=== PATIENT | male | born 1970 | race Caucasian/White ===

== ENCOUNTER 2018-07-13 15:03 | Outpatient (CLI) | payer OTHER ==
[2018-07-13] MEDS ORDERED: GLIM4TAB79 PO (16:10)
[2018-07-13] MEDS ORDERED: METF-438 PO (16:10)
[2018-07-13 17:00] LABS: BASOPHILS % (AUTO) 0.3 % (0-1); EOSINOPHILS # (AUTO) 0.1 X10'3 (0-0.9); LYMPHOCYTES % (AUTO) 29.9 % (21-51); MEAN CORPUSCULAR HEMOGLOBIN 30.5 PG (27.0-31.0); MEAN CORPUSCULAR VOLUME 89.6 FL (78-98); MEAN PLATELET VOLUME 8.1 FL (7.4-10.4); MONOCYTES # (AUTO) 0.6 X10'3 (0-0.9); MONOCYTES % (AUTO) 8.5 % (2-12); NEUTROPHILS # (AUTO) 3.9 X10'3 (1.8-7.7); NEUTROPHILS % (AUTO) 59.3 % (42-75); PRE OP HEMATOCRIT 46.4 % (42.0-52.0); PRE OP HEMOGLOBIN 15.8 g/dL (14.0-17.9); PRE OP PLATELET COUNT 307 X10'3 (140-440); RED BLOOD COUNT 5.18 X10'6 (4.70-6.10)
[2018-07-13 17:05] LABS: HEMOGLOBIN A1C 7.2 % (4.5-6.2)
[2018-07-13 17:46] LABS: ALBUMIN 4.1 G/DL (3.4-5.0); BLOOD UREA NITROGEN 15 MG/DL (7-18); CHLORIDE 103 MMOL/L (99-107); PRE OP POTASSIUM 3.8 MMOL/L (3.4-5.1); PRE OP SODIUM 139 MMOL/L (135-145)
[2018-07-13 18:03] LABS: ALBUMIN/GLOBULIN RATIO 1.1 (1.1-1.5); BUN/CREATININE RATIO 14.3 (5.4-32.0); CALCIUM 9.6 MG/DL (8.5-10.1); CREATININE 1.05 MG/DL (0.60-1.10); PRE OP ALT 56 U/L (30-65); PRE OP ANION GAP 11 (8-16); PRE OP AST 23 U/L (10-37); PRE OP BILIRUB, TOTAL 0.5 MG/DL (0.0-1.0); PRE OP GLUCOSE 131 MG/DL (70-104); TOTAL CARBON DIOXIDE 24.6 MMOL/L (24-32); TOTAL PROTEIN 7.7 G/DL (6.4-8.2); eGFR 76 ML/MIN
[2018-07-13 18:22] LABS: ALKALINE PHOSPHATASE 83 IU/L (46-116)
== END 2018-07-13 23:59 | disposition home or self-care (01) ==
LOC: PRE-OP 15:03 → EDSTATUS 07-21 13:00
PROVIDERS: ATTEND Orthopaedic Surgery
DX: Z01.818 Encounter for other preprocedural examination (principal); M17.12 Unilateral primary osteoarthritis, left knee; Z79.84 Long term (current) use of oral hypoglycemic drugs
CPT/HCPCS: 36415; 80053; 83036; 85025; 87070; 93005

== ENCOUNTER 2018-08-02 06:34 | Inpatient (IN) | payer OTHER ==
[~2018-08-02] VITALS: Ht 182.9 cm; Wt 117.9 kg
[2018-08-02] VITALS (22 sets, daily range): BP systolic 104–151; BP diastolic 66–87
[~2018-08-02 06:34] MED LIST: GLIM4TAB79 PO; METF-438 PO; acetaminophen 325mg tablet PO ONE; cefazolin/dext.iso 2gm/50ml 50 ML IV ONE; famotidine 20mg tablet PO ONE; gabapentin 300mg capsule PO ONE; metoclopramide 5 mg/ml inj IV ONE; oxyCODONE SR 10mg (sust. release) tab -2 tabs (20mg) PO ONE; ringers solution, lacted 1,000 ML IV SCH; tranexamic acid inj. 1,000 MG in normal saline 100ml IV soln 90 ML IV ONE; vancomycin inj 1,500 MG in normal saline 300ml IV soln IV ONE
[2018-08-02 08:57] LABS: BASOPHILS % (AUTO) 0.3 % (0-1); EOSINOPHILS # (AUTO) 0.2 X10'3 (0-0.9); EOSINOPHILS % (AUTO) 2.4 % (0-6); HEMATOCRIT 44.3 % (42.0-52.0); LYMPHOCYTES # (AUTO) 1.5 X10'3 (1.1-4.8); LYMPHOCYTES % (AUTO) 22.8 % (21-51); MEAN CORPUSCULAR HEMOGLOBIN 30.2 PG (27.0-31.0); MEAN CORPUSCULAR HGB CONC 33.8 % (33.0-36.5); MEAN CORPUSCULAR VOLUME 89.5 FL (78-98); MEAN PLATELET VOLUME 7.8 FL (7.4-10.4); MONOCYTES # (AUTO) 0.5 X10'3 (0-0.9); MONOCYTES % (AUTO) 7.1 % (2-12); NEUTROPHILS # (AUTO) 4.3 X10'3 (1.8-7.7); NEUTROPHILS % (AUTO) 67.4 % (42-75); PLATELET COUNT 331 X10'3 (140-440); RED BLOOD COUNT 4.95 X10'6 (4.70-6.10); RED CELL DISTRIBUTION WIDTH 12.6 % (11.5-14.5); WHITE BLOOD COUNT 6.4 X10'3 (4.5-11.0)
[2018-08-02 09:13] LABS: ALANINE AMINOTRANSFERASE 57 U/L (12-78); ALBUMIN 3.9 G/DL (3.4-5.0); ALBUMIN/GLOBULIN RATIO 1.2 (1.1-1.5); ALKALINE PHOSPHATASE 85 IU/L (46-116); ANION GAP 13 (8-16); ASPARTATE AMINO TRANSFERASE 21 U/L (10-37); BILIRUBIN,TOTAL 0.6 MG/DL (0.1-1.0); BLOOD UREA NITROGEN 12 MG/DL (7-18); BUN/CREATININE RATIO 13.5 (5.4-32.0); CALCIUM 8.7 MG/DL (8.5-10.1); CHLORIDE 104 MMOL/L (99-107); CREATININE 0.89 MG/DL (0.60-1.10); GLUCOSE 157 MG/DL (70-104); POTASSIUM 4.1 MMOL/L (3.5-5.1); SODIUM 139 MMOL/L (135-145); TOTAL CARBON DIOXIDE 22.2 MMOL/L (24-32); TOTAL PROTEIN 7.2 G/DL (6.4-8.2); eGFR > 90 ML/MIN
[2018-08-02] MEDS ORDERED: vancomycin 1,000mg inj ONE (09:19)
[2018-08-02] MEDS ORDERED: ROPIVAcaine inj 200 MG, epiNEPHrine inj 0.6 MG, morphine 10mg/ml inj. 5 MG in normal sa... IU ONE (09:45)
[2018-08-02] MEDS ORDERED: sevoflurane 250ml liquid IH ONE (10:00)
[2018-08-02] MEDS ORDERED: fentaNYL /PF 50mcg/ml 5ml ampule ONE (10:05)
[2018-08-02] MEDS ORDERED: midazolam 2 mg/2 ml injection ONE (10:05)
[2018-08-02] MEDS ORDERED: Thrombin (Bovine) 5,000 unit vial TP ONE (10:39)
[2018-08-02] MEDS ORDERED: ketorolac trometh. 30mg/ml inj. ONE (10:39)
[2018-08-02] MEDS ORDERED: calcium chloride 100 MG/1 ML inj IV ONE (10:40)
[2018-08-02] MEDS ORDERED: ringers solution, lacted 1,000 ML IV SCH (11:17)
[2018-08-02] MEDS ORDERED: proCHLORperazine 10 MG/2 ml inj IV PRN (11:20)
[2018-08-02] MEDS ORDERED: meperidine/PF 25mg/ml syringe IV PRN ×3 (11:20)
[2018-08-02] MEDS ORDERED: morphine 4 MG/ML inj SYRINge IV PRN ×2 (11:20)
[2018-08-02] MEDS ORDERED: ondansetron/PF 4mg/2ml inj IV PRN ×2 (11:20→13:45)
[2018-08-02] MEDS ORDERED: cloNIDine hcl/PF 100mcg/ml inj ONE (11:51)
[2018-08-02] MEDS ORDERED: LIDOcaine 2% (20mg/ml) 5ml vial ONE (11:52)
[2018-08-02] MEDS ORDERED: propofol inj 20 ML IV ONE (11:52)
[2018-08-02] MEDS ORDERED: rocuronium 10mg/ml inj IV ONE (11:52)
[2018-08-02] MEDS ORDERED: ROPIVAcaine 0.5% (5mg/ml) 30ml vial ONE (11:55)
[2018-08-02] MEDS ORDERED: dexamethasone sod phosphate 4mg/ml inj. ONE (11:55)
[2018-08-02] MEDS ORDERED: ondansetron/PF 4mg/2ml inj ONE (12:11)
[2018-08-02] MEDS ORDERED: meperidine/PF 50mg/ml syringe ONE (12:35)
[2018-08-02] MEDS ORDERED: insulin regular, human vial - multi-dose ONE (13:01)
[2018-08-02] MEDS ORDERED: fentaNYL/PF 50MCG/1 ML 2ML syringe ONE (13:44)
[2018-08-02] MEDS ORDERED: oxyCODONE IR 5mg (immed. release) tablet PO PRN (13:45)
[2018-08-02] MEDS ORDERED: acetaminophen 325mg tablet PO PRN (13:45)
[2018-08-02] MEDS ORDERED: diphenhydrAMINE 25mg capsule PO PRN ×2 (13:45)
[2018-08-02] MEDS ORDERED: bisacodyl 10mg suppository rectal RC PRN (13:45)
[2018-08-02] MEDS ORDERED: HYDROmorphone 1 mg/ml syringe IV PRN ×2 (13:45)
[2018-08-02] MEDS ORDERED: magnesium hydroxide 30ml (MOM) UD suspension PO PRN (13:45)
[2018-08-02] MEDS: oxyCODONE IR 5mg (immed. release) tablet PO PRN ×2 (16:31→21:05)
[2018-08-02] MEDS: acetaminophen 325mg tablet PO SCH ×2 (16:32→21:03)
[2018-08-02] MEDS: ceFAZolin 1GM/D5W- ADD-VANTAGE 50 ML IV SCH ×2 (16:33→23:50)
[2018-08-02] MEDS ORDERED: tranexamic acid inj. 1,000 MG in normal saline 100ml IV soln 100 ML IV ONE (16:45)
[2018-08-02] MEDS ORDERED: sennosides 8.6mg tablet PO SCH (21:00)
[2018-08-03] MEDS: oxyCODONE IR 5mg (immed. release) tablet PO PRN ×3 (01:10→11:30)
[2018-08-03] MEDS: acetaminophen 325mg tablet PO SCH ×2 (01:11→08:27)
[2018-08-03 02:00] VITALS: BP 112/70
[2018-08-03 06:04] LABS: BASOPHILS % (AUTO) 0.1 % (0-1); EOSINOPHILS # (AUTO) 0.2 X10'3 (0-0.9); EOSINOPHILS % (AUTO) 1.8 % (0-6); HEMATOCRIT 35.4 % (42.0-52.0); HEMOGLOBIN 11.7 g/dl (14.0-17.9); LYMPHOCYTES # (AUTO) 1.7 X10'3 (1.1-4.8); LYMPHOCYTES % (AUTO) 14.8 % (21-51); MEAN CORPUSCULAR HGB CONC 33.1 % (33.0-36.5); MEAN CORPUSCULAR VOLUME 90.8 FL (78-98); MEAN PLATELET VOLUME 7.5 FL (7.4-10.4); MONOCYTES % (AUTO) 8.8 % (2-12); NEUTROPHILS # (AUTO) 8.4 X10'3 (1.8-7.7); NEUTROPHILS % (AUTO) 74.5 % (42-75); PLATELET COUNT 310 X10'3 (140-440); RED BLOOD COUNT 3.89 X10'6 (4.70-6.10); RED CELL DISTRIBUTION WIDTH 12.4 % (11.5-14.5); WHITE BLOOD COUNT 11.2 X10'3 (4.5-11.0)
[2018-08-03] MEDS ORDERED: metFORMIN 500mg tablet PO SCH (07:30)
[2018-08-03] MEDS ORDERED: aspirin 325mg tablet PO SCH (08:30)
[2018-08-03] MEDS ORDERED: ASPI-1 PO (11:19)
[2018-08-03] MEDS ORDERED: celeCOXIB 100mg capsule PO SCH (20:00)
[2018-08-04] MEDS ORDERED: acetaminophen 325mg tablet PO PRN (13:45)
== END 2018-08-03 13:48 | disposition home or self-care (01) | DRG 470 ==
LOC: PAS 06:34 → EDSTATUS 09:45 → ORTHO 4S 13:43
PROVIDERS: ADMIT Orthopaedic Surgery; ATTEND Orthopaedic Surgery
PROC: 8E0Y0CZ Robotic Assisted Procedure of Lower Extremity, Open Approach (ICD-10-PCS; 2018-08-02)
PROC: 3E0T3BZ Introduction of Anesthetic Agent into Peripheral Nerves and Plexi, Percutaneous Approach (ICD-10-PCS; 2018-08-02)
PROC: 0QPC04Z Removal of Internal Fixation Device from Left Lower Femur, Open Approach (ICD-10-PCS; 2018-08-02)
PROC: 0SRD069 Replacement of Left Knee Joint with Oxidized Zirconium on Polyethylene Synthetic Substitute, Cemented, Open Approach (ICD-10-PCS; principal; 2018-08-02 10:00)
DX: M17.12 Unilateral primary osteoarthritis, left knee (principal); D62 Acute posthemorrhagic anemia; Z68.35 Body mass index [BMI] 35.0-35.9, adult; E11.9 Type 2 diabetes mellitus without complications; E66.9 Obesity, unspecified; Z96.7 Presence of other bone and tendon implants; M25.562 Pain in left knee
CPT/HCPCS: 36415; 80053; 82948; 83036; 85025; 87070; 97116; 97162; 97530; A6455; A7000; C1713; C1758; C1776; G0378; J0171; J0690; J0735; J1100; J1170; J1815; J1885; J2001; J2175; J2250; J2270; J2405; J2704; J2765; J2795; J3010; J3370; J7030; J7120